=== PATIENT | male | born 1955 | race Caucasian/White ===

== ENCOUNTER 2016-10-27 09:05 | Emergency (ER) | payer BC ==
[2016-10-27 09:39] LABS: BASOPHILS % (AUTO) 1 % (0-3); EOSINOPHILS % (AUTO) 1 % (0-9); HEMATOCRIT 39 % (39-53); MEAN CORPUSCULAR VOLUME 91 fL (80-100); MONOCYTES % (AUTO) 17.4 % (0-12); NEUTROPHILS % (AUTO) 65.2 % (37-80)
[2016-10-27 09:47] LABS: CALCIUM 8.8 mg/dl (8.5-10.1); POTASSIUM 4.3 mMol/L (3.5-5.1)
[2016-10-27 10:37] VITALS: BP 137/73; PULSE 75; RESP 18; TEMP 99.9; O2SAT 94
== END 2016-10-27 10:15 | disposition home or self-care (01) ==
LOC: ED 09:05
DX: J06.9 Acute upper respiratory infection, unspecified (principal); A08.4 Viral intestinal infection, unspecified
CPT/HCPCS: 36415; 80048; 85025; 87804; 99282

== ENCOUNTER 2017-09-08 07:45 | Outpatient (CLI) | payer BC ==
[2016-10-27 10:37] VITALS: O2SAT 94
== END 2017-09-08 07:46 | disposition home or self-care (01) ==
LOC: CONVCARE 07:45
PROVIDERS: ATTEND Orthopaedic Surgery
DX: Z47.1 Aftercare following joint replacement surgery (principal); Z96.652 Presence of left artificial knee joint
CPT/HCPCS: 73562

== ENCOUNTER 2019-02-16 12:48 | Day surgery (SDC) | payer BC ==
[2019-02-16] MEDS ORDERED: BUPIVACAINE HCL 0.25% MPF 30 ML SOL INFIL ONE (12:59)
[2019-02-16] MEDS ORDERED: FENTANYL 100MCG/2ML SOL ONE (13:14)
[2019-02-16] MEDS ORDERED: MIDAZOLAM 2 MG/2 ML SOL ONE (13:15)
[2019-02-16] MEDS: DEXAMETHASONE SOD PHOS PF 10 MG/ML SOL IJ ONE ×2 (13:36→13:39)
[2019-02-16 13:53] VITALS: BP 170/86; RESP 20; TEMP 97.8; O2SAT 97
[2019-02-16 13:56] VITALS: PULSE 55
== END 2019-02-16 14:18 | disposition home or self-care (01) | DRG 552 ==
LOC: SURG 12:48
PROVIDERS: ATTEND Nurse Anesthetist, Certified Registered
DX: M51.17 Intervertebral disc disorders with radiculopathy, lumbosacral region (principal)
CPT/HCPCS: J2250; J3010; J1100